=== PATIENT | female | born 1965 | race American Indian/Alaskan Native ===

== ENCOUNTER 2023-07-09 06:12 | Day surgery (SDC) | payer OTHER ==
[~2023-07-09] VITALS: Ht 170.2 cm; Wt 127.0 kg
[2023-07-09] MEDS ORDERED: INSULIN REGULAR, HUMAN 10 UNITS/0.1 ML, 3 ML VIAL SUBCUT ONE (08:30)
[2023-07-09] MEDS ORDERED: ONDANSETRON HCL 4 MG/2 ML VIAL ONE (08:55)
[2023-07-09] MEDS ORDERED: DIPHENHYDRAMINE INJ 50 MG/ML VIAL ONE (08:55)
[2023-07-09] MEDS ORDERED: LIDOCAINE MPF 2% 20 MG/1 ML, 5 ML VIAL INH ONE (09:00)
[2023-07-09] MEDS: fentaNYL CITRATE/PF 100 MCG/2 ML AMP ONE (09:09)
[2023-07-09] MEDS: MIDAZOLAM HCL 5 MG/5 ML VIAL ONE (09:10)
[2023-07-09 12:33] VITALS: BP_SYST 150; PULSE 82; RESP 20; TEMP 97.6; O2SAT 99
== END 2023-07-09 10:07 | disposition home or self-care (01) ==
LOC: SDS 06:12 → SMU 06:20 → SDS 10:07
PROVIDERS: ATTEND Internal Medicine
DX: M51.16 Intervertebral disc disorders with radiculopathy, lumbar region (principal); M51.9 Unspecified thoracic, thoracolumbar and lumbosacral intervertebral disc disorder; I10 Essential (primary) hypertension; E78.5 Hyperlipidemia, unspecified; E11.9 Type 2 diabetes mellitus without complications; E03.9 Hypothyroidism, unspecified; Z88.2 Allergy status to sulfonamides; Z88.8 Allergy status to other drugs, medicaments and biological substances; Z79.82 Long term (current) use of aspirin; Z79.899 Other long term (current) drug therapy
CPT/HCPCS: 62323; 82948; J1815; J2250; J3010; Q9967; J1010; 76000; J1030; J1200; J2405